=== PATIENT | female | born 1970 | race Caucasian/White ===

== ENCOUNTER → 2019-12-24 10:35 | Outpatient (REF) | payer OTHER, SELFPAY | LOC: ANHLAB 10:35 | PROVIDERS: PCP Physician Assistant; Visit Provider Nurse Practitioner | DX: C43.59 Malignant melanoma of other part of trunk (principal) | CPT/HCPCS: 88305; 88342 ==

== ENCOUNTER → 2019-12-31 14:52 | Outpatient (REF) | payer OTHER, SELFPAY | LOC: ANHLAB 14:52 | PROVIDERS: PCP Physician Assistant; Visit Provider Nurse Practitioner | DX: D03.59 Melanoma in situ of other part of trunk (principal); D49.2 Neoplasm of unspecified behavior of bone, soft tissue, and skin | CPT/HCPCS: 88305 ==

== ENCOUNTER 2020-09-05 01:40 | Emergency (ER) | payer OTHER, SELFPAY ==
--- NOTE | ~2020-09-05 | CT_ITS ---
EXAMINATION: CT abdomen pelvis w con DATE: 09/05/2020 03:05 INDICATION: Right lower quadrant abdominal pain TECHNIQUE: Computed tomography (CT) of the abdomen and pelvis was performed with 100 cc Omnipaque 350 intravenous contrast. Automated exposure control and iterative reconstruction technique were employe d. Exam dose: 209.34 mGy-cm total exam DLP. COMPARISON: None. FINDINGS: The lung bases are clear of infiltrate or consolidation. Normal heart size. No pericardial or pleural effusion. There are several 5 mm small areas of hypo or enhancement of the liver, too small to definitively swetha racterize, possibly small hepatic cyst. 1 cm splenic calcification. Normal splenic size. No pancreatic mass lesion or calcification or pancreatic duct dilatation. The gallbladder is present. No bile duct or pancreatic duct dilatation. Normal adrenal glands. No renal mass lesion. No urinary tract calculus or hydroureteronephrosis. Normal caliber of the abdominal aorta. No intraperitoneal or retroperitoneal or pelvic mass lesion or adenopathy or ascites. The uterus is enlarged, measuring up to 10.5 cm height, 5 cm AP dimension. Approximately 2.3 cm proba ble serosal fibroid the right uterine fundus. The urinary bladder is unremarkable. The appendix is not definitively localized. Numerous gas distended small bowel segments. No bowel wall thickening or intraperitoneal free air is evident. No suspicious osteolytic or osteoblastic lesions. IMPRESSION: Nonspecific 5 mm smaller hepatic lesions, possibly cysts, but too small to definitively characterize Uterine enlargement, 2.3 cm serosal uterine fibroid Reviewed, dictated and finalized at [facility]. Reviewed, dictated and finalized at [facility]. [facility]
[2020-09-05 01:49] VITALS: BP 112/83; PULSE 78; RESP 16; TEMP 36.4; O2SAT 100
--- NOTE | 2020-09-05 01:56 | ED.GENADULT ---
HPI - General Adult General Chief complaint: Abdominal Pain Stated complaint: abd pain Time Seen by Provider: 09/05/20 01:48 History of Present Illness HPI narrative: Patient 50-year-old female who presents the emergency department with chief complaint of abdominal pain. The patient states the pain began in a periumbilical area and states that it has can move to the right lower quadrant. Patient states that a little bit of nausea with this but denies vomiting or diarrhea. Patient states her last menstrual period was in the last month and was normal. The patient denies vaginal discharge denies dysuria denies flank pain. Patient reports no significant past surgical history or medical history. Related Data Home Medications Medication Instructions Recorded Confirmed escitalopram oxalate 5 mg tablet 5 mg PO DAILY 12/24/19 Allergies Allergy/AdvReac Type Severity Reaction Status Date / Time bacitracin Allergy Unknown Unknown Verified 09/05/20 02:11 polymyxin B Allergy Unknown Unknown Verified 09/05/20 02:11 Review of Systems Review of Systems: Narrative: A 10 system review of systems was completed on the patient and is negative except for what is stated in the HPI. Nursing and ancillary documentation was reviewed. [facility] Past Medical History Medical History (Updated 09/05/20 @ 04:23 by Americo Veras MD) History of Mohs micrographic surgery for skin cancer Skin cancer Family History Family History Father Hypertension Patient's father is in good health SCC (squamous cell carcinoma) Mother Hypertension Patient's mother is in good health Sibling Patient's sister is in good health Social History Social History Smoking status: Never smoker Alcohol intake: current Substance use: never Exam Narrative: Exam Narrative: GENERAL: Well-appearing, well-nourished, and in no acute distress. HEAD: Normocephalic, atraumatic. EYES: PERRLA and EOMI. ENT: Nares clear, no rhinorrhea or epistaxis. Mucous membranes moist. NECK: Supple. CHEST: Clear to auscultation. No respiratory distress. HEART: Regular rate and rhythm. No murmur heard. Normal peripheral pulses. ABDOMEN: Soft, tenderness to palpation in the periumbilical region and localizing to the right lower quadrant, nondistended, normal active bowel sounds. EXTREMITIES: Normal range of motion. No edema. SKIN: Warm, dry, no rash. NEURO: No focal deficits. Alert and oriented x3. PSYCH: Normal mood and affect. Course Course Emergency Course: Patient laboratory studies are within normal limits CT scan of the abdomen pelvis showed a large amount of stool consistent with constipation. Vital Signs Vital signs: Vital Signs Temperature 36.4 C 09/05/20 01:49 Pulse Rate 78 09/05/20 01:49 Respiratory Rate 16 09/05/20 01:49 Blood Pressure 112/83 09/05/20 01:49 Pulse Oximetry 100 09/05/20 01:49 Temperature 36.4 C 09/05/20 01:49 Pulse Rate 71 09/05/20 03:15 Respiratory Rate 16 09/05/20 03:15 Blood Pressure 110/68 09/05/20 03:15 Pulse Oximetry 98 09/05/20 03:15 Medical Decision Making Vital Signs Vital Signs: Vital Signs Temperature 36.4 C 09/05/20 01:49 Pulse Rate 78 09/05/20 01:49 Respiratory Rate 16 09/05/20 01:49 Blood Pressure 112/83 09/05/20 01:49 Pulse Oximetry 100 09/05/20 01:49 Temperature 36.4 C 09/05/20 01:49 Pulse Rate 71 09/05/20 03:15 Respiratory Rate 16 09/05/20 03:15 Blood Pressure 110/68 09/05/20 03:15 Pulse Oximetry 98 09/05/20 03:15 Lab Data Result diagrams: 09/05/20 02:16 09/05/20 02:16 Labs: Lab Results 09/05/20 09/05/20 09/05/20 Range/Units 02:16 02:16 02:16 WBC 6.0 (4.5-10.0) K/mm3 RBC 4.40 (4.2-5.4) M/mm3 Hgb 13.5 (12.0-15.0) g/dL Hct 40.1 (37.0-47.0) % MCV 91.
[2020-09-05] MEDS: SODIUM CHLORIDE 0.9% IV 1,000 ML 999 ML IV CONT (02:04)
[2020-09-05] MEDS: DICYCLOMINE HCL INJ 20 MG/2 ML VIAL IM (02:05)
[2020-09-05] MEDS: ONDANSETRON INJ 4 MG/2 ML VIAL IV PUSH (02:05)
[2020-09-05 02:25] LABS: Basophils Percent Auto 0.7 % (0.2-1.2); Eosinophils Absolute Auto 0.1 K/mm3 (0-0.3); Hematocrit 40.1 % (37.0-47.0); Hemoglobin 13.5 g/dL (12.0-15.0); Immature Granulocyte Absolute 0.02 K/mm3 (0.00-0.031); Immature Granulocyte Percent A 0.3 % (0-0.5); Lymphocytes Absolute Auto 2.77 K/mm3 (0.9-3.2); Lymphocytes Percent Auto 46.2 % (18.3-44.2); Mean Corpuscular HGB Conc 33.7 g/dl (32-36); Mean Corpuscular Hemoglobin 30.7 pg (26-34); Mean Corpuscular Volume 91.1 fl (80-100); Mean Platelet Volume 8.7 fl (7.4-10.4); Monocytes Absolute Auto 0.4 K/mm3 (0.1-0.6); Monocytes Percent Auto 7.2 % (2.6-8.5); Neutrophils Absolute Auto 2.7 K/mm3 (1.3-6.7); Neutrophils Percent Auto 44.6 % (45.5-73.1); Platelet Count Result 336 k/mm3 (150-375); Red Cell Distribution Width 11.9 % (11.5-14.5)
[2020-09-05 02:36] LABS: Alanine Aminotransferase 15 U/L (4-35); Albumin Level 4.3 g/dL (3.5-5.1); Alkaline Phosphatase 64 U/L (38-126); Anion Gap 7 mmol/L (8-16); Aspartate Amino Transferase 25 U/L (14-36); Bilirubin,Total 0.3 mg/dL (0.2-1.3); Blood Urea Nitrogen 9 mg/dL (7-17); Calcium 9.9 mg/dL (8.4-10.2); Carbon Dioxide 30 mmol/L (22-30); Chloride 102 mmol/L (98-107); Estimated CRCL calculation 70 ml/min; Estimated Glomerular Filt Rate > 60; Glucose 120 mg/dL (65-105); Lipase 122 U/L (23-300); Potassium 3.7 mmol/L (3.4-5.0); Sodium 139 mmol/L (137-145)
[2020-09-05 02:42] LABS: Add Urine Microscopic? NO; Appearance Urine Clear (Clear); Bilirubin Urine Negative (Negative); Blood Urine Negative (Negative); Color Urine Colorless (Yellow); Glucose Urine UA Negative (Negative); Ketones Urine Negative (Negative); Leukocyte Esterase Ur Negative LEU/UL (Negative); Nitrate Urine Negative (Negative); Protein Urine Negative (Negative); Specific Grav Ur 1.005 (1.001-1.035); Urobilinogen Urine Negative mg/dL (<2.0)
[2020-09-05 03:15] VITALS: BP 110/68; PULSE 71; RESP 16; O2SAT 98
[2020-09-05] MEDS: MAGNESIUM CITRATE 300 ML BTL PO (04:29)
[2020-09-05 04:33] VITALS: BP 120/72; PULSE 85; RESP 16; O2SAT 100
== END 2020-09-05 04:33 | disposition home or self-care (01) ==
PROVIDERS: Emergency Provider Emergency Medicine; PCP Physician Assistant
DX: R10.84 Generalized abdominal pain (principal); K59.00 Constipation, unspecified; Z85.828 Personal history of other malignant neoplasm of skin
CPT/HCPCS: 36415; 74177; 80053; 81003; 81025; 83690; 85025; 96361; 96372; 96374; 99284; A9270; J0500; J2405; J7030; Q9967

== ENCOUNTER → 2020-12-28 13:26 | Outpatient (REF) | payer OTHER, SELFPAY | LOC: ANHLAB 13:26 | PROVIDERS: PCP Physician Assistant; Visit Provider Nurse Practitioner | DX: L57.0 Actinic keratosis (principal) | CPT/HCPCS: 88305 ==

== ENCOUNTER → 2021-02-04 10:28 | Outpatient (REF) | payer OTHER, SELFPAY | LOC: ANHLAB 10:28 | PROVIDERS: PCP Physician Assistant; Visit Provider Nurse Practitioner | DX: D49.2 Neoplasm of unspecified behavior of bone, soft tissue, and skin (principal) | CPT/HCPCS: 88305; 88342 ==

== ENCOUNTER 2021-11-17 13:13 | Outpatient (CLI) | payer OTHER, SELFPAY ==
--- NOTE | ~2021-11-17 | MMUS_ITS ---
EXAMINATION: MM diagnostic javed RT w junaid, US breast RT complete HISTORY: Right breast pain. TECHNIQUE: Additional 3-D tomosynthesis images of the right breast were performed and synthetic 2-D i mages were generated. CAD analysis was submitted and interpreted. High resolution complete right rodo st ultrasound was performed. COMPARISON: Comparison to multiple prior studies sequentially, with oldest reviewed study dated 01/2013. BREAST PARENCHYMAL COMPOSITION: The breasts are heterogenously dense, which may obscure small masses FINDINGS: MAMMOGRAPHIC FINDINGS: The right breast is stable. Stable appearance to asymmetry in the medial aspect of the right breast p osteriorly, best seen on CC view. No new masses, calcifications or architectural distortion. ULTRASOUND: Complete US of all 4 quadrants of the the right breast and retroareolar region was reviewed. At 1:00, 2 cm from the nipple there is a cyst measuring up to 5 mm. At 7:00, 4 cm from the nipple, there is a oval hypoechoic mass with some angular margins, peripheral vascularity, parallel orientation and no significant posterior features measuring 8 x 5 x 4 mm. At 9:00, 6 cm from the nipple, there is an ova l hypoechoic mass with internal cystic changes, parallel orientation, ill-defined margins measuring 2 .4 x 1.5 x 0.9 cm. IMPRESSION: 1. Suspicious masses are identified in the right breast by ultrasound located at 7:00, 4 cm from the nipple measuring up to 8 mm and 9:00, 6 cm from the nipple measuring up to 2.4 cm. 2. Ultrasound-guided right breast biopsies recommended. BI-RADS category 4, suspicious findings. Reviewed, dictated and finalized at [facility]. IMPRESSION: 1. Suspicious masses are identified in the right breast by ultrasound located a t 7:00, 4 cm from the nipple measuring up to 8 mm and 9:00, 6 cm from the nippl e measuring up to 2.4 cm. 2. Ultrasound-guided right breast biopsies recommended. BI-RADS category 4, suspicious findings.
== END 2021-11-17 13:14 | disposition home or self-care (01) ==
LOC: ANHIMG 13:20
PROVIDERS: PCP Physician Assistant; Visit Provider Obstetrics & Gynecology
DX: N64.4 Mastodynia (principal); R92.8 Other abnormal and inconclusive findings on diagnostic imaging of breast
CPT/HCPCS: 76641; 77061; 77065; G0279

== ENCOUNTER 2023-04-18 07:00 | Outpatient (NON) | payer OTHER, SELFPAY | END 2023-04-18 07:01 | disposition home or self-care (01) | LOC: ANHLAB 04-19 12:41 | PROVIDERS: PCP Physician Assistant; Visit Provider Nurse Practitioner | DX: D22.5 Melanocytic nevi of trunk (principal) | CPT/HCPCS: 88305 ==

== ENCOUNTER 2023-05-02 07:00 | Outpatient (NON) | payer OTHER, SELFPAY | END 2023-05-02 07:01 | disposition home or self-care (01) | LOC: ANHLAB 05-03 12:07 | PROVIDERS: PCP Physician Assistant; Visit Provider Nurse Practitioner | DX: D22.9 Melanocytic nevi, unspecified (principal) | CPT/HCPCS: 88305 ==